=== PATIENT | male | born 1980 | race Two or more races ===

== ENCOUNTER 2019-03-08 23:26 | Inpatient (IN) | payer OTHER ==
[~2019-03-08] VITALS: Ht 172.7 cm; Wt 58.1 kg
--- NOTE | 2019-03-09 01:20 | NUR ---
RN OPEN NOTES RECEIVED PATIENT FROM [facility] DIRECT ADMIT VIA EMT. A/OX1-2. NO SIGNS OF DISTRESS OR DISCOMFORT. BREATHING EVEN AND UNLABORED. IV ACCESS IN LAC, PATENT AND INTACT, NO SIGNS OF REDNESS OR INFILTRATION. ORIENTED PATIENT TO UNIT AND ROOM. ATTACHED TELE MONITOR WITH ST 101 NOTED. BED IN LOW LOCKED POSITION WITH SIDE RAILS X2. HOB ELEVATED. SEIZURE PRECAUTIONS IN PLACE. CALL LIGHT WITHIN REACH. WILL CONTINUE TO MONITOR.
[2019-03-09 01:30] VITALS: BP 124/87
[2019-03-09] MEDS ORDERED: ONDANSETRON HCL/PF 4 MG/2 ML VIAL IVP PRN (02:30)
[2019-03-09] MEDS ORDERED: LORAZEPAM INJ 2 MG/ML VIAL IV PRN (02:30)
[2019-03-09] MEDS ORDERED: Thiamine 100 MG in IV D5W 50 ML IV SCH ×2 (02:30→17:00)
[2019-03-09] MEDS ORDERED: Folic acid 1 MG in IV D5W 50 ML IV SCH ×2 (02:30→18:00)
[2019-03-09 03:11] LABS: HEMATOCRIT 38 % (39-51); HEMOGLOBIN 12.4 g/dL (13.5-17.5); LYMPHOCYTES # (AUTO) 0.9 /CMM (0.8-4.8); LYMPHOCYTES % (AUTO) 11.1 % (20.0-44.0); MEAN CORPUSCULAR HGB CONC 33 g/dl (31.0-36.0); MEAN CORPUSCULAR VOLUME 91 fL (80-96); MONOCYTES # (AUTO) 1.9 /CMM (0.1-1.30); MONOCYTES % (AUTO) 22.2 % (2.0-12.0); NEUTROPHILS # (AUTO) 5.6 /CMM (1.8-8.9); NEUTROPHILS % (AUTO) 66.7 % (43.0-81.0); PLATELET COUNT (AUTO) 179 /CMM (150-450); RED BLOOD CELL COUNT(AUTO) 4.12 MIL/uL (4.5-6.0); WHITE BLOOD COUNT (AUTO) 8.4 K/uL (4.3-11.0)
[2019-03-09 03:35] LABS: ALBUMIN 3.7 g/dL (3.4-5.0); BILIRUBIN,TOTAL 1.2 mg/dL (0.2-1.0); CALCIUM, SERUM 9.3 mg/dL (8.5-10.1); CREATININE 0.7 mg/dL (0.6-1.3); PHOSPHORUS 3.1 mg/dL (2.5-4.9); POTASSIUM 3.4 mmol/L (3.5-5.1); THYROID STIMULATING HORMONE 2.204 uIU/mL (0.358-3.74)
[2019-03-09 04:01] VITALS: BP 144/94
[2019-03-09 04:35] LABS: NEUTROPHILS % (MANUAL) 75 (42-76)
[2019-03-09 04:36] LABS: LYMPHOCYTES % (MANUAL) 13 % (16-48); MONOCYTES % (MANUAL) 12 % (0-11.0)
--- NOTE | 2019-03-09 07:38 | NUR ---
RN CLOSING NOTES PATIENT RESTING COMFORTABLY IN BED, EASILY AROUSABLE. A/OX1-2. NO SIGNS OF DISTRESS OR DISCOMFORT. BREATHING EVEN AND UNLABORED. IV ACCESS IN LAC, PATENT AND INTACT, NO SIGNS OF REDNESS OR INFILTRATION. ON TELE MONITOR WITH SR [address] NOTED. ALL NEEDS MET. NO SIGNIFICANT CHANGES THROUGH THE NIGHT. BED IN LOW LOCKED POSITION WITH SIDE RAILS X2. HOB ELEVATED. SEIZURE PRECAUTIONS IN PLACE. CALL LIGHT WITHIN REACH. ENDORSED TO AM SHIFT FOR [place].
--- NOTE | 2019-03-09 08:00 | NUR ---
TRACK HOE OPERATOR OPENING NOTES Received Patient asleep and resting in bed. VS stable with no acute distress. Breathing even and unlabored on room air with no respiratory distress. Denies pain. Telemonitor in place and patent reading SR with HR-88. 20g PIV on LAC clean, intact, patent and flushing well. Safety precautions in place. Bed locked and set to lowest position with side rails x 2 up. All needs rendered at this time. Call light within reach. Will continue to monitor.
[2019-03-09 08:22] VITALS: BP 117/77
[2019-03-09] MEDS: PANTOPRAZOLE 40 MG VIAL IV SCH (08:51)
[2019-03-09] MEDS ORDERED: POTASSIUM CL. PREMIX PERIPHER. 50 ML IV SCH (10:00)
--- NOTE | 2019-03-09 15:22 | NUR ---
Social service consult requested by Dr. Spence for ETOH withdrawals and seizures. Pt. is a 38 year old male who was admitted to [facility] from [facility]. [place]IA and case management specialist Diane met with the pt. bedside. Pt. is alert and oriented x 3. Pt. appears dirty and disheveled. Pt. states he resides with his parents in [place] but was not able to provide the address. Pt. states, he drinks 3 to 4 beers per day. Pt. has no history of attending an alcohol treatment program. ORALIA offered pt. referrals to treatment programs, however pt. declined. Pt. will require a TAP card upon discharge. No other social service needs are requested at this time. SW is available, if needed.
[2019-03-09] MEDS: IV NS 0.9% 1,000 ML IV PRN (17:02)
--- NOTE | 2019-03-09 19:10 | NUR ---
MS RN NOTE RECEIVED PT IN STABLE CONDITION A/O X2, CURRENTLY RESTING IN BED. NO SIGNS OF SOB OR DISTRESS, NO C/O PAIN OR N/V. IV IN LAC #[address] ALL CURRENT NEEDS ATTENDED TO. BED LOW, LOCKED, UPPER RAILS UP, SEIZURE PRECAUTIONS IN PLACE. WILL CONT TO MONITOR .
--- NOTE | 2019-03-09 19:21 | NUR ---
MS RN CLOSING NOTES Patient awake and watching TV in bed. VS stable with no acute distress. Breathing even and unlabored on room air with no respiratory distress. Denies pain. 20g PIV on LAC clean, intact, patent and flushing well with NS infusing at 150ml/hr. Safety precautions in place. Bed locked and set to lowest position with side rails x 2 up. All needs rendered at this time. Call light within reach. Will endorse plan of care to oncoming shift.
[2019-03-09 20:00] VITALS: BP 107/94
[2019-03-10] MEDS: IV NS 0.9% 1,000 ML IV PRN (01:54)
--- NOTE | 2019-03-10 06:11 | NUR ---
MS RN NOTE PT REMAINS IN STABLE CONDITION A/O X3, CURRENTLY RESTING IN BED. NO SIGNS OF SOB OR DISTRESS, NO C/O PAIN OR N/V. IV IN LAC #[address] WITH IVF INFUSING. ALL CURRENT NEEDS ATTENDED TO. BED LOW, LOCKED, UPPER RAILS UP, SEIZURE PRECAUTIONS IN PLACE. WILL ENDORSE TO NEXT SHIFT FOR [place].
[2019-03-10 06:53] LABS: CALCIUM, SERUM 8.9 mg/dL (8.5-10.1); CREATININE 0.7 mg/dL (0.6-1.3); MAGNESIUM 1.6 mg/dL (1.8-2.4); PHOSPHORUS 3.6 mg/dL (2.5-4.9); POTASSIUM 3.4 mmol/L (3.5-5.1)
[2019-03-10 07:21] LABS: BASOPHILS # (AUTO) 0.1 /CMM (0.0-0.2); HEMATOCRIT 34 % (39-51); HEMOGLOBIN 11.3 g/dL (13.5-17.5); LYMPHOCYTES # (AUTO) 1.6 /CMM (0.8-4.8); LYMPHOCYTES % (AUTO) 23.1 % (20.0-44.0); MEAN CORPUSCULAR HGB CONC 33 g/dl (31.0-36.0); MEAN CORPUSCULAR VOLUME 92 fL (80-96); MONOCYTES # (AUTO) 1.1 /CMM (0.1-1.30); MONOCYTES % (AUTO) 15.9 % (2.0-12.0); PLATELET COUNT (AUTO) 157 /CMM (150-450); RED BLOOD CELL COUNT(AUTO) 3.69 MIL/uL (4.5-6.0); WHITE BLOOD COUNT (AUTO) 6.9 K/uL (4.3-11.0)
[2019-03-10 08:00] VITALS: BP 125/76
--- NOTE | 2019-03-10 08:11 | NUR ---
MS RN NOTES PATIENT RECEIVED RESTING INSIDE ROOM. AWAKE, A/O X 3. VERBALLY RESPONSIVE AND RESPONDS TO VERBAL AND TACTILE STIMULI. NO CHANGES IN LOC NOTED AT THIS TIME. PATIENT CALM AND RELAXED. SAFETY PRECAUTIONS IN PLACE. SEIZURE PRECAUTIONS IN PLACE. WILL CONTINUE TO MONITOR. BED LOCKED AND IN LOW POSITION. BILATERAL UPPER SIDE RAILS UP AND LOCKED. CALL LIGHT WITHIN EASY REACH
[2019-03-10] MEDS: PANTOPRAZOLE 40 MG VIAL IV SCH (09:44)
[2019-03-10] MEDS ORDERED: FOLIC ACID 1 MG TABLET PO SCH (10:00)
[2019-03-10] MEDS ORDERED: THIAMINE HCL 100 MG TABLET PO SCH (10:00)
[2019-03-10] MEDS ORDERED: POTASSIUM CHLORIDE 20 MEQ TAB.PRT.SR PO SCH (10:00)
[2019-03-10 10:23] LABS: BAND % (MANUAL) 2 % (0.0-5.0); EOSINOPHILS % (MANUAL) 6 % (0-4); LYMPHOCYTES % (MANUAL) 16 % (16-48); MONOCYTES % (MANUAL) 16 % (0-11.0); NEUTROPHILS % (MANUAL) 60 (42-76)
[2019-03-10] MEDS: Magnesium 1GM/D5W 100ML PREMIX 100 ML IV SCH ×2 (11:48→13:33)
--- NOTE | 2019-03-10 12:31 | NUR ---
MS RN NOTES REPORT GIVEN TO UNIQUE FINNEY FOR [place].
[2019-03-10 16:00] VITALS: BP 132/96
--- NOTE | 2019-03-10 19:00 | NUR ---
MS RN NOTES PATIENT RESTING COMFORTABLY IN BED. ALERT AND AWAKE ORIENTED X3. DENIES ANY C/O PAIN NOR DISCOMFORT AT THIS TIME. IV ACCESS TO LEFT AC # 20 INTACT AND PATENT INFUSING NS @ 15OML/HR. ABLE TO VERBALIZE NEEDS. IN NO APPARENT DISTRESS. BED IN LOWEST POSITION. CALL LIGHT WITHIN REACH.
[2019-03-10 20:00] VITALS: BP 126/78
--- NOTE | 2019-03-10 20:00 | NUR ---
MS RN NOTES Patient fever of 100.8, did cooling measure by removing blanket cooling room. Rechecked and temperature remained 100.6. Notified MD and he ordered Ibuprofin 400 mg Q8 PRN. Will continue to monitor pt.
--- NOTE | 2019-03-10 21:18 | NUR ---
MS RN NOTES Gave patient Ibuprofun 400 mg for temperature of 100.6 . Will continue to monitor.
--- NOTE | 2019-03-10 21:25 | NUR ---
MS RN OPENING RN OPENING NOTES Patient received resting in bed, awake and a/o x3. Patient able to make all needs known. Patient stable on RA breathing even and unlabored, no SOB noted. No signs of acute distress, no changes on LOC noted, and no complaints of pain or discomfort. IV located on L AC #20 running 150 ml/ hr. Seizure precaution in place and safety precautions with bed in lowest position, breaks on, and call light within reach. Will continue to monitor.
[2019-03-10] MEDS ORDERED: IBUPROFEN 400 MG TABLET PO PRN (21:30)
--- NOTE | 2019-03-10 22:00 | NUR ---
MS RN NOTES PATIENT DECREASED TO 99 T WILL CONTINUE TO MONITOR
[2019-03-11] MEDS: IV NS 0.9% 1,000 ML IV PRN (04:02)
--- NOTE | 2019-03-11 06:59 | NUR ---
MS RN NOTE PATIENT LEFT AMA, INFORMED PATIENT ABOUT RISK. PATIENT REFUSED TO LISTEN AND WANTED TO LEAVE AGAINST MEDICAL ADVICE. PATIENT SIGNED AMA PAPER LEFT AT [id number] ACCOMPANIED BY ROGER. IV WAS REMOVED, MEDICAL BAND REMOVED, AND ALL BELONGINGS BROUGHT WITH. LEFT A MESSAGE TO PRATEEK FROM [facility]ANGE TO NOTIFY MD ABOUT AMA.
--- NOTE | 2019-03-11 07:00 | NUR ---
MS RN NOTES AESTHETICIAN NOTIFIED.
== END 2019-03-11 06:40 | disposition left against medical advice (07) | DRG 770 ==
LOC: TELE 03-09 01:11 → MED 03-09 08:42
PROVIDERS: ADMIT Internal Medicine; ATTEND Internal Medicine
DX: F10.239 Alcohol dependence with withdrawal, unspecified (principal); G92 Toxic encephalopathy; K70.10 Alcoholic hepatitis without ascites; E83.42 Hypomagnesemia; E86.0 Dehydration; E87.6 Hypokalemia; F19.10 Other psychoactive substance abuse, uncomplicated; G40.509 Epileptic seizures related to external causes, not intractable, without status epilepticus; R74.0 Nonspecific elevation of levels of transaminase and lactic acid dehydrogenase [LDH]; D64.9 Anemia, unspecified
CPT/HCPCS: 36415; 80048-TC; 80053-TC; 80061-TC; 83735-TC; 84100-TC; 84443-TC; 85025-TC; 87081-TC; C9113; G0378; J3411; J3475; J3480; J3490; J7030; J7060